=== PATIENT | female | born 2000 | race Caucasian/White ===

== ENCOUNTER 2022-04-04 11:39 | Outpatient (CLI) | payer BC, MEDICAID | END 2022-04-04 11:40 | disposition home or self-care (01) | LOC: CSHWCC 11:39 | PROVIDERS: ATTEND Preventive Medicine Undersea and Hyperbaric Medicine | DX: T81.89XD Other complications of procedures, not elsewhere classified, subsequent encounter (principal) | CPT/HCPCS: 99205; G0463 ==